=== PATIENT | female | born 1975 | race Caucasian/White ===

== ENCOUNTER 2024-08-26 14:50 | Emergency (ER) | payer OTHER ==
[~2024-08-26] VITALS: Ht 165.1 cm; Wt 51.8 kg
--- NOTE | 2024-08-26 15:14 | Physician Documentation ---
History of Present Illness ~ Stated Complaint: KIDNEY PAIN Time Seen by MD: 15:11 Source: patient Mode of Arrival: POV Exam Limitations: no limitations HPI 49-year-old female with history of frequent UTIs. Last UTI approximately 3 months ago. Patient is from [place] her primary care provider advised her to go to the emergency room due to left back/kidney pain. Patient states she has had this back pain ongoing for several months even without the diagnosis of UTI. Patient denies any injuries or adverse events. Patient states that her UTIs been cultured before and have shown only E coli. Denies any fever dysuria urgency or frequency. Patient states she is just concerned that it is a kidney infection and she does not feel well Medication Reconciliation Allergies: Coded Allergies: No Known Allergies (Unverified , 08/26/24) Scheduled Ciprofloxacin HCl (Cipro), 1 TAB PO Q12H Physical Exam General Appearance: alert, WD/WN, no apparent distress Respiratory: lungs clear, normal breath sounds, no respiratory distress Chest: no accessory muscle use, chest non-tender Cardiovascular: normal peripheral pulses, regular rate, rhythm, no edema Gastrointestinal: normal palpation, non-tender, bowels sounds present Back: CVA tenderness (L) Progress Results/Orders Results/Orders Orders - BEULAH MARTINI NP BMP (08/26/24 15:13) Cbc/Diff (08/26/24 15:13) Completed Orders - BEULAH MARTINI NP Ua W/Microscopic, Cult If Ind (08/26/24 15:41) Vital Signs 08/26/24 08/26/24 08/26/24 08/26/24 15:06 15:44 16:00 16:44 Temp 98.0 98.0 Pulse 86 79 77 Resp 17 16 17 15 B/P (MAP) 163/100 138/86 (103) 120/73 Pulse Ox 100 99 99 O2 Flow Rate 0 0 Laboratory Tests Test 08/26/24 15:41 Urine Specimen Description Cln catch midstream Urine Color Yellow Urine Clarity Slightly cloudy Urine pH 5.5 Urine Specific [place] >=1.030 Urine Protein Negative Urine Glucose (UA) Negative Urine Ketones Negative Urine Occult Blood Moderate H Urine Nitrite Negative Urine Bilirubin Negative Urine Urobilinogen 0.2 Urine Leukocyte Esterase Negative Urine RBC 3-10 Urine WBC None seen Urine Squamous Epithelial Cells Few Urine Calcium Oxalate Crystals 1+ Urine Bacteria 1+ Urine Mucus Moderate Urine Culture Indicated Not ind Volume Urine Centrifuged 10 ml Urine Comment Medical Decision Making Findings Patient has history of frequent UTIs having left flank tenderness. Patient also has history of kidney stones but states since this does not feel like a kidney stone. Patient has had this pain that is lingering for 6 months and feels like it is a kidney infection at this time. Patient was advised from her primary care to come in. Patient refused labs that did her urine. It does show some bacteria but culture isn't indicated negative for leukocytes and nitrates. Patient would like to try the antibiotics and go see her primary care provider. Departure Time of Disposition: 16:26 Disposition: 01 HOME / SELF CARE / HOMELESS Impression: Primary Impression: Acute pyelonephritis Condition: Stable Discharge Instructions: Pyelonephritis, Adult Additional Instructions: Discussed urinalysis negative for leukocytes or nitrates but did show bacteria casts. With your left back/flank pain and history of kidney stones as well as frequent UTIs take antibiotics as prescribed if symptoms worsen follow-up with your primary care urgent care or ER for further evaluation Referrals: NO PRIMARY CARE PROVIDER (PCP) Prescriptions Ciprofloxacin HCl (Cipro) 500 Mg Tablet 1 TAB PO Q12H for 10 Days, #20 TAB Prov: BEULAH MARTINI NP 08/26/24 Education Educated: Patient Educated regarding: diagnosis, treatment, need for follow up Signature Scribe Signature: No scribe Attestation: The note accurately reflects work and decisions made by me.Beulah Martini - JODI 08/26/24 16:28 BEULAH MARTINI NP Aug 26, 2024 15:14
[2024-08-26 15:55] LABS: BILIRUBIN,URINE NEGATIVE (Neg); COLOR,URINE YELLOW (Yellow); GLUCOSE, URINE NEGATIVE (Neg); KETONES,URINE NEGATIVE (Neg); LEUKOCYTE ESTERASE ,URINE NEGATIVE (Neg); NITRITES, URINE NEGATIVE (Neg); OCCULT BLOOD,URINE MODERATE (Neg); PH,URINE 5.5 (4.8-8.0); PROTEIN,URINE NEGATIVE (Neg); UROBILINOGEN,URINE 0.2 E.U/dL (0.2-1.0)
[2024-08-26 15:56] LABS: CLARITY,URINE SLIGHTLY CLOUDY (Clear); UA COLLECTION TYPE CLN CATCH MIDSTREAM
[2024-08-26 16:01] LABS: SQUAMOUS EPITHELIAL CELL,UR FEW /LPF (FEW)
[2024-08-26 16:03] LABS: BACTERIA,URINE 1+ /HPF (Neg); MUCUS STRANDS MODERATE /LPF (Neg)
[2024-08-26 16:05] LABS: CAL OXALATE CRYSTALS 1+ /HPF (NEGATIVE); WBC,URINE NONE SEEN /HPF (0-4)
[2024-08-26] MEDS ORDERED: CIPR-259 PO (16:28)
[2024-08-26 16:44] VITALS: BP 120/73; PULSE 77; RESP 15; TEMP 98; O2SAT 99
== END 2024-08-26 16:51 | disposition home or self-care (01) ==
LOC: ER 14:51
DX: N10 Acute pyelonephritis (principal)
CPT/HCPCS: 81001; 99283

== ENCOUNTER 2024-10-30 05:02 | Emergency (ER) | payer OTHER ==
[~2024-10-30] VITALS: Ht 165.1 cm; Wt 51.6 kg
--- NOTE | 2024-10-30 05:34 | Physician Documentation ---
History of Present Illness ~ Chief Complaint: Head Injury Stated Complaint: HEAD STRIKE Time Seen by MD: 05:04 OK to notify your PCP?: Yes HPI 49 year old female fell at concert last night, struck head on rock. Reports laceration to left parieto-occipital scalp Tetanus within 5 years?: No Medication Reconciliation Allergies: Coded Allergies: No Known Allergies (Unverified , 10/30/24) Review of Systems All Other Systems at this time: Reviewed and Negative Physical Exam Vital Signs: RN Vital Signs have been reviewed: Yes, Temperature: 98.0, Source: Oral, Heart Rate: 68, Respiratory Rate: 12, BP: 126/85, Pulse Oximetry: 97, We ight: 51.600 Oxygen Flow Rate: 0 Physical Exam HEENT: PERRL, moist oral mucosa, EOMI; laceration 1cm to left parieto-occipital scalp Pulmonary: No respiratory distress MSK: no deformity Skin: w/d/i, no rash Neuro: alert, nonfocal Psych: normal affect Procedures Laceration/Wound Repair Laceration/Wound Repair : Anesthesia: Lidocaine w/ Epi Prep: irrigated by nurse Debrided: minimal Undermining: none Margins: flaps aligned Foreign Body: not identified Repaired: skin Wound Repaired With: shabnam Number of Superficial Sutures: 2 Layer Closure?: No Tolerated Procedure Well?: yes, no complications Progress Results/Orders Results/Orders Orders - BETHANIE ROMERO MD General Nursing Order (10/30/24 ) Completed Orders - BETHANIE ROMERO MD Lidocaine 1% W/Epi 1:100,000 (Xylocaine (10/30/24 05:15) Vital Signs 10/30/24 10/30/24 05:05 05:25 Temp 98.0 98.0 Pulse 67 68 Resp 16 12 B/P (MAP) 117/78 126/85 (99) Pulse Ox 98 97 O2 Flow Rate 0 0 Medical Decision Making Findings 49 year old female with laceration as above. Cleansed, repaired without complication, return precautions. Differential Dx:Considerations: Include: Closed head injury, Skull facture, Abrasion, Contusion, Laceration, Intoxication-alcohol, Non-accidental trauma Departure Disposition: HOME / SELF CARE / HOMELESS Impression: Primary Impression: Scalp laceration Condition: Stable Discharge Instructions: Laceration Care, Adult Additional Instructions: return in one week for staple removal Referrals: NO PRIMARY CARE PROVIDER (PCP) Education Educated: Patient Educated regarding: diagnosis, treatment, prognosis, need for follow up Signature Scribe Signature: . Attestation: . BETHANIE ROMERO MD Oct 30, 2024 05:34
[2024-10-30] MEDS: LIDOcaine 1% W/epiNEPHrine 1:100,000 20ml vial SQ ONE (05:57)
[2024-10-30 05:58] VITALS: TEMP 98
[2024-10-30 06:16] VITALS: BP 129/76; PULSE 70; RESP 18; O2SAT 100
== END 2024-10-30 06:30 | disposition home or self-care (01) ==
LOC: ER 05:03
DX: S01.01XA Laceration without foreign body of scalp, initial encounter (principal); W19.XXXA Unspecified fall, initial encounter; Y93.89 Activity, other specified; Y92.89 Other specified places as the place of occurrence of the external cause; Y99.8 Other external cause status
CPT/HCPCS: 12001; 99284

== ENCOUNTER 2024-11-06 16:57 | Emergency (ER) | payer OTHER ==
[~2024-11-06] VITALS: Ht 165.1 cm; Wt 52.3 kg
--- NOTE | 2024-11-06 17:09 | Physician Documentation ---
History of Present Illness ~ Chief Complaint: Suture Removal Stated Complaint: STAPLE REMOVAL Time Seen by MD: 17:08 [facility] Patient is a 49-year-old female that reports to the emergency department for removal of shabnam to her head. Patient denies any complications just here for removal of shabnam. Tetanus Within 5 Years: No Medication Reconciliation Allergies: Coded Allergies: No Known Allergies (Unverified , 11/06/24) Review of Systems ROS As stated above in the HPI, otherwise all systems are reviewed and negative. Physical Exam Physical Exam VITALS: Reviewed and as above. GENERAL: Alert, no apparent distress. HEENT: Normocephalic, atraumatic, PERRL, EOMI, dry mucosa, no erythema RESPIRATORY: Lungs clear, normal breath sounds, no respiratory distress. CHEST: No accessory muscle use, no retractions CV: Regular rate, rhythm, no edema, no murmur, No: JVD GI: Soft, non-tender, bowels sounds present, no rebound, guarding, or rigidity BACK: No CVA tenderness, or swelling MUSCULOSKELETAL No deformities, no edema SKIN: Warm and dry, shabnam to the posterior portion of the head no complications no drainage or erythema.. NEURO: Oriented x4, No motor or sensory deficit PSYCH: Normal mood and affect, no agitation Progress Results/Orders Results/Orders Orders - CHIQUIS GAUTHIERP General Nursing Order (11/06/24 ) Vital Signs 11/06/24 17:11 Temp 99.7 Pulse 84 Resp 16 B/P (MAP) 133/82 Pulse Ox 99 O2 Flow Rate 0 Medical Decision Making Findings Patient presents for staple removal. Jachin removed without complication. See patient will follow up with her primary care provider for any concerns. Patient will return to the emergency department he worsening of her current symptoms or any additional concerning symptoms that we discussed here today. Differential Dx:Considerations: Include: Cellulitis, Suture removal, Wound dehiscence, Other Departure Disposition: 01 HOME / SELF CARE / HOMELESS Impression: Primary Impression: Wound Additional Impression: Removal of shabnam Additional Instructions: For removal. No complications. Follow up with primary care provider. Return to the emergency department with any worsening or recurrent symptoms or any additional concerning symptoms that we discussed here today. Referrals: NO PRIMARY CARE PROVIDER (PCP) Education Educated: Patient Educated regarding: diagnosis, treatment, need for follow up Signature Scribe Signature: A Attestation: Scribed for Chiquis Gauthier by JODI Conn . 11/06/24 18:13 CHIQUIS GAUTHIER Nov 06, 2024 17:09
[2024-11-06 17:11] VITALS: BP 133/82; PULSE 84; RESP 16; TEMP 99.7; O2SAT 99
== END 2024-11-06 18:13 | disposition home or self-care (01) ==
LOC: ER 16:58
DX: S01.81XD Laceration without foreign body of other part of head, subsequent encounter (principal); X58.XXXD Exposure to other specified factors, subsequent encounter
CPT/HCPCS: 99281

== ENCOUNTER 2025-02-23 15:21 | Emergency (ER) | payer OTHER ==
[~2025-02-23] VITALS: Ht 162.6 cm; Wt 55.5 kg
[2025-02-23 15:43] VITALS: BP 153/89; PULSE 79; RESP 16; O2SAT 100
[2025-02-23 16:08] LABS: LEUKOCYTE ESTERASE ,URINE NEGATIVE (Neg); NITRITES, URINE NEGATIVE (Neg); OCCULT BLOOD,URINE TRACE-INTACT (Neg)
[2025-02-23 16:11] LABS: UA COLLECTION TYPE NON-SPECIFIED
[2025-02-23 16:13] LABS: SQUAMOUS EPITHELIAL CELL,UR FEW /LPF (FEW)
--- NOTE | 2025-02-23 17:03 | Physician Documentation ---
History of Present Illness ~ Chief Complaint: Urinary Symptoms Stated Complaint: KIDNEY PAIN Time Seen by MD: 16:17 Primary Medical Doctor: Out of area HPI Patient is a very pleasant 49-year-old female that presents to the emergency department for evaluation of urinary symptoms. Patient reports she has a history of frequent UTIs and pyelonephritis. Patient also reports that she has pain starting in her left ear she is concerned that she is getting ear infection. Patient reports that she has had frequent ear infections as an adult. Patient denies fever chills nausea vomiting diarrhea at this time. But does report left-sided flank pain that she reports is consistent with pyelonephritis that she has previously had. Patient denies any other symptoms at this time. Medication Reconciliation Allergies: Coded Allergies: No Known Allergies (Unverified , 02/23/25) Scheduled Amox Tr/Potassium Clavulanate (Augmentin 875-125 Tablet), 1 TAB PO Q12H Review of Systems ROS As stated above in the HPI, otherwise all systems are reviewed and negative. Physical Exam Vital Signs: Temperature: 99.0, Source: Temporal, Heart Rate: 79, Respiratory Rate: 16, BP: 153/89, Pulse Oximetry: 100, Weight: 55.500 Oxygen Flow Rate: 0 Physical Exam VITALS: Reviewed and as above. GENERAL: Alert, no apparent distress. HEENT: Normocephalic, atraumatic, PERRL, EOMI, dry mucosa, mild erythema and bulging noted in the left tympanic membrane and canal on examination. RESPIRATORY: Lungs clear, normal breath sounds, no respiratory distress. CHEST: No accessory muscle use, no retractions CV: Regular rate, rhythm, no edema, no murmur, No: JVD GI: Soft, non-tender, bowels sounds present, no rebound, guarding, or rigidity BACK: Positive left CVA tenderness, or swelling MUSCULOSKELETAL No deformities, no edema SKIN: Warm and dry, no rash NEURO: Oriented x4, No motor or sensory deficit PSYCH: Normal mood and affect, no agitation Progress Results/Orders Results/Orders Completed Orders - CHIQUIS GAUTHIER [employer] Ua W/Microscopic, Cult If Ind (02/23/25 15:50) Amox Tr/Potassium Clavulanate (Augmentin (02/23/25 17:05) Vital Signs 02/23/25 15:43 Temp 99.0 Pulse 79 Resp 16 B/P (MAP) 153/89 Pulse Ox 100 O2 Flow Rate 0 Laboratory Tests Test 02/23/25 15:50 Urine Specimen Description Non-specified Urine Color Yellow Urine Clarity Clear Urine pH 6.0 Urine Specific [place] <=1.005 Urine Protein Negative Urine Glucose (UA) Negative Urine Ketones Negative Urine Occult Blood Trace-intact Urine Nitrite Negative Urine Bilirubin Negative Urine Urobilinogen 0.2 Urine Leukocyte Esterase Negative Urine RBC 0-2 Urine WBC 0-4 Urine Squamous Epithelial Cells Few Urine Bacteria None seen Urine Culture Indicated Not ind Volume Urine Centrifuged 10 ml Urine Comment Medical Decision Making Additional information obtaine: other Findings Medical Decision Making - Moderate Complexity Number and Complexity of Problems Addressed: Acute otitis media, left ear (moderate problem) Left flank pain with history of recurrent UTIs and pyelonephritis, urinalysis negative (moderate problem) Amount and/or Complexity of Data: Urinalysis performed and reviewed, negative for infection. Patient declined additional laboratory diagnostics and imaging studies. Physical examination revealed mild acute otitis media of the left ear. Risk of Complications and/or Morbidity or Mortality: Acute Otitis Media: Given the patient's history of frequent adult ear infections and examination findings consistent with acute otitis media, antibiotic therapy is indicated. Amoxicillin-clavulanate (Augmentin) 875 mg twice daily for 10 days was prescribed, which is an appropriate first-line or alternative treatment for acute otitis media. The 10-day duration is consistent with standard recommendations for otitis media treatment. Urinary Symptoms: Despite the patient's history of recurrent UTIs and pyelonephritis, and current complaint of left-sided flank pain, urinalysis was negative for infection. The absence of pyuria makes bacterial cystitis or pyelonephritis unlikely. In patients with uncomplicated UTI symptoms, a negative urinalysis has high negative predictive value. Given the negative urinalysis and absence of fever, chills, nausea, or vomiting, empiric antibiotic therapy specifically for urinary tract infection is not indicated at this time. The patient was counseled regarding this clinical reasoning. Watchful waiting with close follow-up is appropriate, with instructions to return within 24-48 hours if symptoms persist or worsen, or if new symptoms develop (fever, worsening flank pain, dysuria). If symptoms progress, urine culture with susceptibility testing would be warranted to guide targeted therapy. The Augmentin prescribed for otitis media provides coverage for common uropathogens including Escherichia coli, though it is not being prescribed primarily for urinary symptoms given the negative urinalysis. Should urinary symptoms persist despite treatment, reassessment with urine culture would be necessary, as oral beta-lactams like amoxicillin-clavulanate may have variable efficacy for complicated UTI depending on local resistance patterns and adequate urinary concentrations. Plan: Augmentin 875 mg orally twice daily for 10 days for acute otitis media Symptomatic management as needed Return precautions: return to ED within 24-48 hours if urinary symptoms persist or worsen, or if fever, severe pain, or other concerning symptoms develop Patient verbalized understanding of treatment plan and return precautions Patient declined further diagnostic workup at this time and will monitor symptoms Urinary Diff Dx:Considerations: Include: AAA, , Aortic dissection, Appendicitis, Bowel obstruction, Cholelithiasis, Choleangitis, DJD, Ectopic , Hepatitis, HNP, Impaction, Intrauterine , Musculoskeletal pain, Ovarian torsion, Pancreatitis, PID, Post-Op complication, Pyelonephritis, Renal failure, Strain, Urinary Obstruction, Urolithiasis, Urinary retention, UTI, Vaginitis, Other Genital Diff Dx:Considerations: Include: -Complete, - Incomplete, -Inevitable, Ablortion-Missed, -Threatened, Abruptio placentae, Bartholin abscess, Bartholin cyst, Blood loss anemia, Constipation, Cervicitis, Dsymenorrhea, Ectopic , Foreign body, Hormonal, Hidradenitis suppurativa, Intrauterine , Menorrhagia, Menometrorrhagia, Menstrual bleeding, Myomatous uterus, Perianal abscess, Physiologic discharge, Pinworms, PID, Placenta previa, , Precipitous Hct, Trauma, UTI, Vaginitis(osis)-Atrophic, Vaginitis, Vaginitis(osis)-Bacterial, Vaginitis(osis)- Candidal, Vaginitis(osis)-Contact, Vaginitis(osis)-Herpes, Vaginitis(osis)- Trich., Other Departure Disposition: 01 HOME / SELF CARE / HOMELESS Impression: Primary Impression: Acute otitis media Condition: Stable Discharge Instructions: Otitis Media, Adult, [id number] Additional Instructions: Your Diagnosis You were seen today for: Left ear infection (acute otitis media) Left-sided flank pain with a history of frequent urinary tract infections Your Medications Augmentin (Amoxicillin-Clavulanate) 875 mg Take one tablet by mouth twice daily (every 12 hours) for 10 days Take with food to reduce stomach upset Complete the full 10-day course even if you feel better - stopping early can lead to the infection coming back Common side effects include diarrhea, nausea, and stomach upset If you develop severe diarrhea, rash, or difficulty breathing, stop the medication and seek medical attention immediately Ibuprofen ([id number]) Take 400-600 mg by mouth every 6-8 hours as needed for pain or discomfort Take with food to protect your stomach Do not exceed 2400 mg in 24 hours What to Expect Ear Infection: Your ear pain should start to improve within 2-3 days of starting antibiotics Most people feel significantly better within 48-72 hours Some mild discomfort may persist for several days Urinary Symptoms: Your urine test today did not show signs of infection Your symptoms may improve on their own The antibiotic prescribed for your ear infection may also help if a urinary infection develops When to Return to the Emergency Department Return immediately or call 911 if you develop: High fever (temperature over 101F or 38.3C) Severe or worsening pain that is not controlled with medication Confusion or difficulty staying awake Severe nausea or vomiting that prevents you from taking your medication or staying hydrated Blood in your urine Inability to urinate Return within 24-48 hours if: Your urinary symptoms (flank pain, burning with urination, frequent urination) do not improve or get worse Your ear pain is not improving after 2-3 days of antibiotics You develop new symptoms such as drainage from your ear, hearing loss, or dizziness You cannot tolerate your antibiotic due to side effects Self-Care at Home Stay well hydrated - drink plenty of water throughout the day Get adequate rest to help your body fight infection Avoid inserting anything into your ear canal Apply a warm compress to your ear for comfort if needed Urinate when you feel the urge - don't hold it Follow-Up Care Schedule an appointment with your primary care provider within 1-2 weeks Bring a list of all medications you are taking If you have frequent ear infections or urinary tract infections, discuss prevention strategies with your doctor Important Reminders Do not share your antibiotics with others Store your medication at room temperature, away from heat and moisture If you miss a dose, take it as soon as you remember, but do not take two doses at once Keep track of your symptoms - write down when they improve or worsen Questions or Concerns? If you have questions about your medications or treatment plan, contact your primary care provider during regular business hours. For urgent concerns that cannot wait, return to the emergency department. Referrals: NO PRIMARY CARE PROVIDER (PCP) Prescriptions Amox Tr/Potassium Clavulanate (Augmentin 875-125 Tablet) 1 Each Tablet 1 TAB PO Q12H for 10 Days, #20 TAB Prov: CHIQUIS GAUTHIER 02/23/25 Education Educated: Patient Educated regarding: diagnosis, treatment, need for follow up Signature Scribe Signature: a Attestation: Scribed for Chiquis Gauthier by JODI Conn . 02/23/25 17:15 CHIQUIS GAUTHIER Feb 23, 2025 17:03
[2025-02-23] MEDS ORDERED: AMOX-117 PO (17:08)
[2025-02-23] MEDS: amox tr/potassium clavulanate 875/125mg TAB PO ONE (17:18)
[2025-02-23 17:19] VITALS: TEMP 99
== END 2025-02-23 17:20 | disposition home or self-care (01) ==
LOC: ER 15:21
DX: H66.92 Otitis media, unspecified, left ear (principal); Z87.440 Personal history of urinary (tract) infections
CPT/HCPCS: 81001; 99283